=== PATIENT | female | born 1995 | race Hispanic/Latino ===

== ENCOUNTER 2025-04-15 12:13 | Emergency (ER) | payer SELFPAY ==
[~2025-04-15] VITALS: Ht 160 cm; Wt 63.5 kg
[2025-04-15 13:15] LABS: IMMATURE GRANULOCYTE ABSOLUTE 0.02 K/uL (0-1); NUCLEATED RED BLOOD CELLS 0.0 % (0.0-0.19); PLATELET COUNT (AUTO) 380 K/uL (130-400); RED BLOOD CELL COUNT(AUTO) 5.01 MIL/uL (4.00-5.50); RED CELL DISTRIBUTION WIDTH 12.7 % (11.0-15.5); WHITE BLOOD COUNT (AUTO) 8.1 K/uL (4.8-10.8)
[2025-04-15 13:28] LABS: CREATININE 0.9 mg/dL (0.5-1.0); GLOMERULAR FILTR. RATE CALC 89.0 mL/min (>90); GLUCOSE,RANDOM 94.0 mg/dL (70-105); SODIUM SERUM 140.0 mmol/L (136-145); UREA NITROGEN, BLOOD 9.0 mg/dL (7-18)
[2025-04-15 13:33] LABS: ASPARTATE AMINOTRANSFERASE 23.0 U/L (10-37); TOTAL PROTEIN, SERUM 8.0 g/dL (6.0-8.3)
[2025-04-15 13:47] LABS: GLUCOSE, URINE (UA) NEGATIVE (NEGATIVE); LEUKOCYTE ESTERASE ,URINE TRACE Leu/uL (NEGATIVE); NITRATE,URINE NEGATIVE (NEGATIVE); OCCULT BLOOD,URINE LARGE (NEGATIVE)
[2025-04-15 13:51] LABS: APPEARANCE,URINE CLOUDY (CLEAR)
[2025-04-15 13:54] LABS: ADD UA MICROSCOPIC YES
[2025-04-15 13:55] LABS: HCG,QUALITATIVE URINE NEGATIVE (NEGATIVE)
[2025-04-15 14:05] LABS: SQUAMOUS EPITHELIAL CELL,UR 30-50 /HPF (0-2)
--- NOTE | 2025-04-15 15:24 | ERN ---
ED Note History of Present Illness Stated Complaint: VAGINAL BLEEDING Chief Complaint: Vaginal Problems/Bleeding Time Seen by MD: 12:37 Dictation: 29-year-old female presenting to the emergency department with vaginal bleeding patient is , reports on and off irregular periods over the past few months however she has not been checked with a music manager. Patient denies chest pain or abdominal pain. Allergies: Coded Allergies: No Known Drug Allergies (Unverified Allergy, Unknown, 02/08/16) Home Meds No Active Prescriptions or Reported Meds Past Medical History Past Medical History: Anemia, Asthma Surgical History: None LMP: Feb 19, 2025 Review of System Dictation Constitutional: Negative for fever,chills, and weight loss Eyes: Negative for injury, pain,redness, and discharge ENT: Negative for injury,pain or swelling Cardiovascular: Negative for chest pain, palpitations, and edema Respiratory: Negative for shortness of breath, cough, and wheezing, Abdomen/GI: Negative for abdominal pain, nausea, vomiting, diarrhea, and constipation Back: Negative for injury and pain : Per HPI MS/Extremity: Negative for injury and deformity Skin: Negative for rash, and discoloration Neuro: Negative for headache, weakness, numbness, tingling, and seizure Psych: Negative for suicide ideation, homicidal ideation, and hallucinations Initial Vital Sign VS Vital Signs Date Time Temp Pulse Resp B/P (MAP) Pulse Ox O2 Delivery O2 Flow Rate FiO2 04/15/25 12:14 98.1 82 20 127/72 98 Room Air 04/15/25 12:57 0 21 Physical Exam Dictation General: awake, alert, NAD Head/Face: Normocephalic, atraumatic Eyes: PERRL, EOMI, vision at baseline ENT: oral cavity clear, TMs clear, no signs of infection Neck: Trachea midline, supple, no nuchal rigidity Cardiovascular: RRR, normal S1/S2, No MRGs, no JVD Respiratory: CTAB, no respiratory distress, No rales or wheezes Abdomen: Soft, non-tender, non-distended, normal bowel sounds, no guarding or rebound. Skin: Warm, dry, normal turgor, no rash MS/Extremity: Pulses equal, no cyanosis, neurovascular intact, FROM Neuro: COAx4, GCS 15, strength 5/5, CN 2-12 intact, normal cerebellar exam, normal gait, Psych: Normal behavior, mood, and affect normal Results (Laboratory/Radiology) Laboratory/Radiology Laboratory Tests Test 04/15/25 12:55 04/15/25 13:04 Urine Color DARK YELLOW (YELLOW) Urine Appearance CLOUDY (CLEAR) H Urine pH 5.0 (5.0-8.0) Urine Specific [place] 1.026 (1.001-1.031) Urine Protein 100 mg/dL (NEGATIVE) H Urine Glucose (UA) NEGATIVE mg/dL (NEGATIVE) Urine Ketones 5 mg/dL (NEGATIVE) H Urine Occult Blood LARGE (NEGATIVE) H Urine Nitrate NEGATIVE (NEGATIVE) Urine Bilirubin SMALL mg/dL (NEGATIVE) H Urine Urobilinogen 0.2 mg/dL (0.2-1.0) Urine Leukocyte Esterase TRACE [place]/uL (NEGATIVE) H Urine RBC 11-25 /HPF (0-1) H Urine WBC 6-10 /HPF (0-1) H Urine Squamous Epithelial Cells 30-50 /HPF (0-2) Urine Bacteria Many /HPF (None Seen) H Urine HCG, Qualitative NEGATIVE (NEGATIVE) White Blood Count 8.1 K/uL (4.8-10.8) Red Blood Count 5.01 MIL/uL (4.00-5.50) Hemoglobin 14.3 g/dL (12.0-16.0) Hematocrit 43.9 % (36-48) Mean Corpuscular Volume 87.6 fL (79-99) Mean Corpuscular Hemoglobin 28.5 pg (27.0-33.0) Mean Corpuscular Hemoglobin Concent 32.6 g/dL (32.0-36.0) Red Cell Distribution Width 12.7 % (11.0-15.5) Platelet Count 380 K/uL (130-400) Mean Platelet Volume 10.1 fL (7.5-10.5) Immature Granulocyte % (Auto) 0.2 % (0-1) Neutrophils (%) (Auto) 63.0 % (40.0-77.0) Lymphocytes (%) (Auto) 28.8 % (21.0-51.0) Monocytes (%) (Auto) 5.8 % (3.0-13.0) Eosinophils (%) (Auto) 1.7 % (0.0-8.0) Basophils (%) (Auto) 0.5 % (0.0-5.0) Neutrophils # (Auto) 5.1 K/uL (1.8-7.7) Lymphocytes # (Auto) 2.3 K/uL (1.0-4.8) Monocytes # (Auto) 0.5 K/uL (0.1-1.0) Eosinophils # (Auto) 0.14 K/uL (0.00-0.70) Basophils # (Auto) 0.04 K/uL (0.00-0.20) Absolute Immature Granulocyte (auto 0.02 K/uL (0-1) Nucleated Red Blood Cells 0.0 % (0.0-0.19) Sodium Level 140 mmol/L (136-145) Potassium Level 4.3 mmol/L (3.5-5.1) Chloride Level 105 mmol/L (101-111) Carbon Dioxide Level 28 mmol/L (21-32) Blood Urea Nitrogen 9 mg/dL (7-18) Creatinine 0.9 mg/dL (0.5-1.0) Glomerular Filtration Rate Calc 89 mL/min (>90) Random Glucose 94 mg/dL (70-105) Total Calcium 8.9 mg/dL (8.5-10.1) Total Bilirubin 0.2 mg/dL (0.2-1.0) Direct Bilirubin 0.1 mg/dL (0.0-0.3) Aspartate Amino Transf (AST/SGOT) 23 U/L (10-37) Alanine Aminotransferase (ALT/SGPT) 33 U/L (12-78) Alkaline Phosphatase 61 U/L (50-136) Total Protein 8.0 g/dL (6.0-8.3) Albumin 4.0 g/dL (3.5-5.0) Labs Reviewed?: Yes ED Course ED Course Orders Procedure Category Date Status Time Basic Metabolic Panel LAB 04/15/25 Complete 12: Cbc With Differential LAB 04/15/25 Complete 12:41 Hepatic Function Panel LAB 04/15/25 Complete 12:41 Urinalysis Profile LAB 04/15/25 Complete 12:41 ,Urine Test LAB 04/15/25 Complete 12: Culture Urine KATHRYN 04/15/25 In Process 14:06 Us Pelvic Non-Ob Comp US 04/15/25 Taken 14:09 Vital Signs Date Time Temp Pulse Resp B/P (MAP) Pulse Ox O2 Delivery O2 Flow Rate FiO2 04/15/25 12:57 98.1 82 20 127/72 98 Room Air* 0 21 04/15/25 12:14 98.1 82 20 127/72 98 Room Air Medical Decision Making MDM MDM: Differential diagnosis: Rationale: Tests considered and ordered secondary to shared decision making include: Previous outside records reviewed: Old ER visits. Risk of complication and/or morbidity or mortality of patient management: None Medications-Per medication reconciliation Need for hospitalization: Patient does not meet criteria for hospitalization. Need for emergency major/minor surgery: No There are no social concerns with this patient. Prescription drug management Prescriptions will include symptomatic care Patient's prior external medical records from other ER visits were reviewed by me as indicated. Prior testing and results from previous visits were reviewed. Prior tests were taken into account with medical decision making and resource utilization, independent historian/historians were used to obtain complete medical history. I independently interpreted the test that were performed, results were reviewed by me and considered findings on radiology if ordered. Medical management and examination interpretation discussions were had by me with other qualified healthcare professionals as indicated for the patient's care. 29-year-old female with dysmenorrhea nausea, hemodynamically stable H&H stable, no active bleeding now, ultrasound was stable, negative test stable for outpatient gynecology follow up DX & DISP Disposition: Discharge Departure Impression: Primary Impression: Dysmenorrhea Condition: Stable Scripts No Active Prescriptions or Reported Meds Referrals: SANTOSH SMITH MD (PCP) MARIE SETH MD Apr 15, 2025 15:24
--- NOTE | 2025-04-15 15:49 | HMCIMG ---
EXAM: US Pelvis, Complete Transabdominal COMPARISON: None provided. CLINICAL HISTORY: vaginal bleeding TECHNIQUE: Transabdominal pelvic ultrasound (complete) with image documentation. FINDINGS: ENDOMETRIUM: Measures 3 mm in thickness. Normal appearance. UTERUS/CERVIX: Uterus measures approximately 8.2 x 3.8 x 5.8 cm. The uterus appears within normal limits. No uterine fibroid or other mass evident. RIGHT OVARY: Measures approximately 2.4 x 1.8 x 2.2 cm. Normal Doppler flow. No abnormal mass. LEFT OVARY: Measures approximately 2.6 x 1.5 x 2.3 cm. Normal Doppler flow. No abnormal mass. FREE FLUID: No free fluid in the cul-de-sac.IMPRESSION: 1. No acute pelvic pathology. /[place]
[2025-04-15 16:01] VITALS: BP 122/88; PULSE 80; RESP 20; TEMP 98.1; O2SAT 98
== END 2025-04-15 16:03 | disposition home or self-care (01) ==
LOC: EDH 12:13
DX: N94.6 Dysmenorrhea, unspecified (principal); J45.909 Unspecified asthma, uncomplicated; Z79.899 Other long term (current) drug therapy
CPT/HCPCS: 36415; 76856; 80048; 80076; 81001; 81025; 85025; 87086; 99284